=== PATIENT | female | born 2000 | race Caucasian/White ===

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

== ENCOUNTER → 2020-03-21 16:12 | Outpatient (CLI) | payer OTHER, SELFPAY ==
[2018-12-29 17:24] VITALS: BMI 23.5
[2020-03-25 20:07] LABS: Chlamydia By Nucleic Acid AMP Negative (Negative)
[2020-03-25 21:15] LABS: Gonococcus By Nucleic Acid AMP Negative (Negative)
== END ==
PROVIDERS: PCP Family Medicine; Visit Provider Obstetrics & Gynecology
DX: Z11.3 Encounter for screening for infections with a predominantly sexual mode of transmission (principal)
CPT/HCPCS: 87491; 87591

== ENCOUNTER → 2021-04-03 | Outpatient (CLI) | payer OTHER, SELFPAY ==
[2021-04-06 22:06] LABS: Chlamydia By Nucleic Acid AMP Negative (Negative)
[2021-04-07 07:57] LABS: Gonococcus By Nucleic Acid AMP Negative (Negative)
== END | disposition home or self-care (01) ==
LOC: LABSPEC 14:25
PROVIDERS: PCP Family Medicine; Visit Provider Obstetrics & Gynecology
DX: Z11.3 Encounter for screening for infections with a predominantly sexual mode of transmission (principal)
CPT/HCPCS: 87491; 87591

== ENCOUNTER 2021-06-11 05:51 | Day surgery (SDC) | payer OTHER, SELFPAY ==
[2021-06-11] VITALS (9 sets, daily range): BP systolic 115–129; BP diastolic 67–85; PULSE 80–97; RESP 14–18; TEMP 35.6–36.8; O2SAT 100; BMI 27.6
[2021-06-11 06:20] LABS: Internal QC Validated? YES +Cl - CLEAR BKGD; Pregnancy, Urine Negative Negative
[2021-06-11] MEDS: Lactated Ringers 1,000 ML 15 ML IV ×2 (06:50→10:07)
[2021-06-11 07:00] LABS: Hematocrit 41.1 % (37-47); Hemoglobin 14.1 g/dL (12.0-15.0); Mean Corp Hgb Conc 34.3 g/dL (32-36); Mean Corpuscular Volume 87.4 fL (81-99); Mean Platelet Vol. 9.7 fl (6.2-12.0); Platelet Count 208 K/mm3 (150-450); RBC Distribution Width SD 38.8 fl (35.1-43.9); White Blood Count 5.7 K/mm3 (4.4-11.0)
[2021-06-11 07:06] LABS: Prothrombin Time (Protime)PT. 12.9 SECONDS (11.7-14.9)
[2021-06-11 07:07] LABS: Partial Thromboplast Time 26.9 Seconds (24.1-36.2)
[2021-06-11 07:25] LABS: Thyroid Stim Hormone (TSH) 2.16 uIU/mL (0.358-3.74)
--- NOTE | 2021-06-11 07:30 | APP_PTH ---
PATIENT: PAXTON GUZMAN LOC: [facility] [place] U[place][id number] AGE/SX: 20/F ROOM: RE06/11/[address]: Dr. Meme Romo MD : [id number] BED: DIS: 06/11/2021 SPEC #: [id number] RECD: 06/11/21 11:28 STATUS: YVONNE REHerve #: [id number] RIMA: 06/11/21 07:[address]: Meme Navarro DEPT: SURGICAL PATHOLOGY RECD BY: Nicole Velez ENTERED: 06/11/21 12:24 SP TYPE: APPENDIX OTHR DR: No Primary Care Phys Tissues: A - TISSUE SURGICALLY REMOVED B - Appendix, NOS Procedures: Surgery Specimen Level III Surgery Specimen Level IV HEADER OPERATION: Diagnostic laparoscopy, excision of endometriosis; laparoscopic appendectomy PRE-OP DIAGNOSIS: Dysmenorrhea, dyspareunia, appendicitis, endometriosis TISSUE SUBMITTED: A ? Posterior cul-de-sac specimen, B - Appendix MICROSCOPIC DIAGNOSIS A. Posterior cul-de-sac tissue, biopsy: Fibrofatty tissue with focal benign histiocytic reaction and minimal chronic inflammation. B. Appendix, appendectomy: Early acute appendicitis. AM:mikey 06/12/2021 MICROSCOPIC DESCRIPTION Slides are reviewed. GROSS DESCRIPTION A - Received in fixative is one container labeled with the patient's name and designated posterior cul-de-sac. The specimen consists of an irregular fragment of murray-pink soft tissue measuring 0.5 x 0.5 x 0.1 cm. The specimen is totally submitted in one cassette. B - Received in fixative is one container labeled with the patient's name and designated appendix. The specimen consists of an appendix measuring 8 cm in length and 0.5 cm in average diameter. No gross perforations are evident. Serial sections reveal a patent lumen. No mass lesion is identified. Jewel Bearing Broacher sections are submitted in one cassette. / AM:mikey 06/11/21 TC:2 CPT: 67272, 51503
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
[2021-06-11] MEDS: Cefotetan 2 GM in 0.9% NS 100 ML IV (07:51)
--- NOTE | 2021-06-11 09:08 | OP.PCM_ITS ---
Report of Operation Date of Procedure: 06/11/21 Pre-Operative Diagnosis: 1. Dysmenorrhea Post-Operative Diagnosis: 1. Dysmenorrhea 2. Endometriosis 3. Appendicitis Surgery/Procedure Performed:: 1. Diagnostic laparoscopy 2. Excision of endometriosis Description of Surgical Findings:: Yellow posterior culdesac lesion Surgeon: Meme Navarro senior solutions architect: Sharda New Type of Anesthesia: General Anesthesiologist: Andreas Bird Specimen's removed: 1. posterior culdesac endometriosis Estimated Blood Loss (mL): 10 Fluids Replaced: 1000 ml Description of Procedure: Indications: 29-year-old nulligravida with a history of chronic dysmenorrhea and dyspareunia refractory to oral contraceptive pills presents for scheduled diagnostic laparoscopy to rule out endometriosis. Procedural risks, benefits, indications and alternatives were reviewed and patient agreeable to proceed. Informed consent was obtained. Procedure: The patient was brought to the operating room and spinal was performed. She is placed in the dorsal supine position and induced under general anesthesia and intubated. Her arms were tucked at her sides and she was repositioned to dorsal lithotomy. Examination under anesthesia was performed. The perineum and abdomen were prepped and draped in sterile fashion. Velasco catheter was placed to the bladder. The patient was placed into high lithotomy and bivalve speculum placed vaginally. Cervix was grasped using a single-tooth tenaculum at the anterior cervical lip. The uterus sounded to 8 cm and a ZUMI uterine manipulator was placed and secured. The speculum was removed from the vagina. Patient was placed into low lithotomy and attention turned to the abdomen. An inferior umbilical incision was made using the scalpel. Veress needle was introduced abdominally with successful hanging drop test and no aspirate. Abdominal entry pressure was low and the abdomen was insufflated to 15 mmHg. The Veress needle was removed and a 5 mm trocar was introduced under laparo scopic guidance confirming entry into the abdominal cavity. A suprapubic incision was made using the scalpel and a 5 mm port also introduced at this site. The abdomen and pelvis were inspected there appeared to be an area of endometriosis in the posterior cul-de-sac abutting the vagina and right pelvic vascular congestion as well as inflamed appendix. I proceeded with isolation resection of the peritoneum of the posterior cul-de-sac having the lesion. This was done using the laparoscopic shyann and blunt and sharp dissection. Interceed was introduced into the pelvis placed at the excisional site. I obtained intraoperative consultation from Dr. English, general surgery regarding the appearance of the appendix. She agreed that appendectomy was indicated and performed laparoscopic appendectomy that was uncomplicated. Please review her operative report for additional details bleeding abdominal closure. I subsequently proceeded to remove the Velasco catheter as well as the uterine m anipulator. The cervical tenaculum site was hemostatic. The procedure was complete. The patient will be awakened, awakened extubated and transferred to the recovery room. She is tolerated the procedure well. Sponge and needle counts correct x2. Complications None Admit VTE Documentation VTE Present on Admission: No VTE Mechan Device Prophylaxis: SCD's VTE Pharm Prophylaxis ordered?: No
--- NOTE | 2021-06-11 09:27 | PCM.DC ---
Discharge Instructions Diet Discharge Diet: No restrictions Activity Discharge Activity: Return to Normal Activity May resume sexual activity in: 4 weeks and - Lifting Restrictions: 10 lb Dressing / Incision Call your doctor if your incision/area has: Continuous Slow Oozing, Sudden Increased Bleeding, Increased Pain/ Swelling, Increased Redness, Foul Smelling Discharge and Swelling at the incision site Call your doctor if you observe: Fever of 101 or Higher, Inability to urinate, Inability to have a bowel movement, Shortness of breath, Chest pain, Calf discomfort and Uncontrolled pain Remove Dressing in: 2 days Cleanse incision/area with: Soap & Water Follow Up Care Please Follow Up With: Meme Navarro MD When: 2 weeks on , June 25. Call the office to schedule. Test Results: Test results from this visit will be discussed in further detail at your follow-up appointment, if applicable. Discharge Plan Admission Primary Reason for Your Visit: Removal of endometriosis and Removal of appendix Attending Provider: Meme Navarro Primary Care Provider: Care Physician,No Primary Instructions Patient Instructions: Endometriosis Lap Tx Dc, Appendectomy Laparoscopic Dc Discharge Orders/Prescriptions Prescriptions: New oxycodone 5 mg capsule 5 mg PO Q6H PRN (Reason: pain) 7 Days Qty: 20 RF: 0 ibuprofen 800 mg tablet 800 mg PO Q8H PRN (Reason: pain) Qty: 30 RF: 0 Continued norethindrone-e.estradiol-iron [ (28)] 1.5 mg-30 mcg (21)/75 mg (7) Tablet 1 tab PO DAILY RF: 0 Referrals / Follow Up: Care Physician,No Primary [Primary Care Provider] - Disposition Disposition (needs filled in before D/C Order can be placed): Home, Self Care
[2021-06-11] MEDS: Bupivacaine Mpf 0.5% 30 ML VIAL (09:28)
--- NOTE | 2021-06-11 09:36 | PCM.OPRPT ---
Report of Operation Date of Procedure: 06/11/21 Pre-Operative Diagnosis: mild acute appendicitis Post-Operative Diagnosis: same Surgery/Procedure Performed:: laparoscopic appendectomy Surgeon: Jazmine Kim Type of Anesthesia: General/Supplemental Anesthesiologist: Andreas Bird Special Medications: Per Dr. Meme Romo please refer to her operative note Specimen's removed: appendix Estimated Blood Loss (mL): <10 cc Fluids Replaced: per anesthesia Description of Procedure: Indications: 20-year-old female is having laparoscopic for excision of endometriosis by Dr. Meme Romo. Incidentally found mildly inflamed appendix?intraoperative consult obtained. Dr. Abigail Romo has been discussed with patient's mother about removing the appendix and I also had further discussion with patient's mom. Description of the procedure: Please see Dr. Meme Romo's operative note for the beginning of the case. The appendix was grasped with atraumatic grasper and elevated. It was noted to be mildly inflamed. A window was developed in the mesoappendix at the point between the base of the appendix and the cecum. The infraumbilical 5 mm trocar was enlarged to accommodate a 12 mm trocar. An endoscopic 45 mm linear cutting stapler blue load was then used to divide and staple the base of the appendix. Enseal was used to divide the mesoappendix. The appendix was withdrawn into the Baker trocar after being placed endoscopically retrieval bag. Appendix was sent to pathology. The appendiceal stump was then irrigated and hemostasis was assured. Secondary trochars were removed under direct visualization. No bleeding was noted trocar sites. The laparoscope withdrawn and the umbilical trocar removed. The abdomen was allowed to collapse. Local anesthesia of 0.5% Marcaine was used at the incision sites. The umbilical trocar site was closed with the [id number] 0 Vicryl suture. The skin was closed up to clear sutures of 4-0 Monocryl and Steri-Strips. The patient was extubated. The patient tolerated the procedure well and was taken to the postanesthesia care unit in satisfactory condition. Complications none
[2021-06-11] MEDS: HYDROcodone Bitartrate/Apap 5/325 Tablet PO (11:46)
== END 2021-06-11 13:02 | disposition home or self-care (01) ==
LOC: SDC 05:52 → AC 05:53
PROVIDERS: Anesthesiology; Surgery; Referring Provider Obstetrics & Gynecology; Visit Provider Obstetrics & Gynecology
PROC: (CPT 49320; principal; 2021-06-11 07:15)
PROC: 0DTJ4ZZ Resection of Appendix, Percutaneous Endoscopic Approach (ICD-10-PCS; CPT 44970; 2021-06-11 07:15)
DX: N80.9 Endometriosis, unspecified (principal); K35.80 Unspecified acute appendicitis; Z20.822 Contact with and (suspected) exposure to COVID-19; F17.200 Nicotine dependence, unspecified, uncomplicated
CPT/HCPCS: 44970; 58662; 81025; 84443; 85027; 85610; 85730; 86850; 86900; 86901; 87426; 88304; 88305; C9803; J7120; C1760; J2405

== ENCOUNTER 2021-07-10 15:48 | Outpatient (CLI) | payer OTHER, SELFPAY | END 2021-07-10 23:59 | disposition short-term general hospital (02) | PROVIDERS: Visit Provider Obstetrics & Gynecology | DX: N71.1 Chronic inflammatory disease of uterus (principal) ==

== ENCOUNTER 2022-10-31 00:02 | Emergency (ER) | payer OTHER, SELFPAY ==
[2022-10-31 00:03] VITALS: BP 141/83; PULSE 115; RESP 18; TEMP 36.9; O2SAT 99; BMI 31.4
--- NOTE | 2022-10-31 00:25 | EDS_ITS ---
HPI History of Present Illness Chief Complaint: Lower Extremity Injury [facility] Medical History (Updated 10/31/22 @ 01:[address] Benjamin Hodges, DO) Alcohol use Anxiety Dysmenorrhea Endometriosis Migraine headache Non-smoker Severe headache Home Medications norethindrone 1.5 mg-ethinyl estradiol 30 mcg(21)/iron 75 mg(7) tablet (June FE 1.5/30 (28)) 1 tab PO DAILY 06/05/21 [History Last Taken Unknown] ibuprofen 800 mg tablet 800 mg PO Q8H PRN pain #30 tabs 06/11/21 [Rx Last Taken Unknown] ondansetron 4 mg disintegrating tablet 4 mg PO Q8H PRN PRN Nausea #10 tabs 10/31/22 [Rx Last Taken Unknown] Allergy/AdvReac Type Severity Reaction Status Date / Time No Known Allergies Allergy Verified 06/11/21 06:23 Social History (Updated 12/29/18 @ 17:35 by MILLIE Appiah) Smoking Status: Never smoker EXAM Physical Exam Const Vital Signs: 10/31/22 00:03 Temperature 98.5 F Temperature Source Oral Pulse Rate 115 H Respiratory Rate 18 Blood Pressure 141/83 H Blood Pressure Mean 102 Pulse Ox 99 Oxygen Delivery Method Room Air [facility] MDM Narrative Medical decision making narrative: HISTORY OF PRESENT ILLNESS: 22-year-old female here with ankle pain. Patient states she is not drinking tonight. States she rolled her ankle. Denies any other injury or trauma. Notes pain is constant, severe, worsened with palpation. Denies history of ankle surgery. REVIEW OF SYMPTOMS: Pertinent positives: Ankle pain Pertinent negatives: Numbness tingling or loss of sensation PHYSICAL EXAM: Nursing triage notes reviewed, Vital signs reviewed Constitutional: please see mdm Extremities: No edema Neuro: Intact sensation L1-S1 dermatomal distributions. Intact 5/5 strength in hip flexion (T12-L3). Knee extension (L2-L4). Ankle dorsiflexion (L4-L5). Ankle plantar flexion (S1). Great toe extension (L5). 2+ patellar and Achilles DTRs. Skin: No rash or lesions noted MEDICAL DECISION MAKING: Chief Complaint: Ankle pain External records reviewed: No recent advanced imaging of the involved extremity MDM Narrative: I considered the following differential diagnosis: Ankle fracture, dislocation, ankle sprain I obtained an x-ray which showed no evidence of ankle fracture. Patient is appropriate discharge home with Santhosh wrap. The patient was clinically intoxicated however she had a sober ride home. Sober ride home was alert and orient x3 did not appear intoxicated and assured me that she would care for the patient. The patient's friend assured me that she would get the patient home safely. Patient was discharged in the care of her sober friend. Factors affecting care: Anxiety, alcohol use, migraine headache Social determinants of health: Alcohol abuse History obtained from others: The patient's past friend Shared decision making: I will have a discussion with the patient and or visitors regarding risk/bene fits of further testing or admission. They will be made aware of of the risk/benefits inherent in this decision they will be given the opportunity to voice understanding. Consults: None Radiography Diagnostic Testing: Clinical Impression(s) from Imaging Studies Ankle X-Ray 10/31/22 00:45 IMPRESSION: Soft tissue swelling laterally consistent with sprain. No fracture. Electronically Signed: Florentino Marion MD at 1:19 EDT , Discharge Plan Triage Chief Complaint: Lower Extremity Injury ED Provider: Benjamin Hodges Dx/Rx/DC Orders Clinical Impression: Ankle sprain Instructions: ED Sprain Ankle W X Ray Prescriptions: New ondansetron 4 mg tablet,disintegrating 4 mg PO Q8H PRN PRN (Reason: Nausea) Qty: 10 0RF No Action norethindrone-e.estradiol-iron [ 1.5/30 (28)] 1.5 mg-30 mcg (21)/75 mg (7) Tablet 1 tab PO DAILY ibuprofen 800 mg tablet 800 mg PO Q8H PRN (Reason: pain) Qty: 30 0RF Primary Care Provider: Care Physician,No Primary Referrals: Care Physician,No Primary [Primary Care Provider] - Activity Restrictions/Additional Instructions: Thank you for trusting us with your care today! Please refrain from drinking excessive amount of alcohol. Recommended amount of alcohol is 1 drink per day for females. Please take Tylenol (2 pills, 650 mg), ibuprofen (2 pills, 400 mg) every 6 hours as needed for pain and fever control. Please return to the emergency department if your symptoms change or worsen. Please follow with your primary care physician for further outpatient evaluation and management. Disposition Disposition: Home, Self Care
--- NOTE | 2022-10-31 00:45 | RAD_ITS ---
EXAM: XR RIGHT ANKLE COMPLETE, 3 OR MORE VIEWS CLINICAL INDICATION: ankle pain TECHNIQUE: Frontal, lateral and oblique views of the right ankle. COMPARISON: No relevant prior studies available. FINDINGS: BONES/JOINTS: Unremarkable. No acute fracture. No subluxation. Normal alignment. Preservation of the joint space. No sclerotic or destructive changes observed. SOFT TISSUES: Soft tissue swelling laterally consistent with sprain. No radiopaque foreign body. RAD/Ankle min 3 Views IMPRESSION: Soft tissue swelling laterally consistent with sprain. No fracture. Electronically Signed: Florentino Marion MD at 1:19 EDT ,
[2022-10-31] MEDS: Ondansetron ODT 4 MG Tablet PO (00:53)
[2022-10-31] MEDS: Ibuprofen 200 MG Tablet 400 MG PO (02:02)
[2022-10-31 02:07] VITALS: PULSE 115; RESP 15; O2SAT 97
== END 2022-10-31 02:31 | disposition home or self-care (01) ==
PROVIDERS: Emergency Provider Emergency Medicine; Visit Provider Emergency Medicine
DX: S93.401A Sprain of unspecified ligament of right ankle, initial encounter (principal); F41.9 Anxiety disorder, unspecified; F10.10 Alcohol abuse, uncomplicated; G43.909 Migraine, unspecified, not intractable, without status migrainosus; X50.9XXA Other and unspecified overexertion or strenuous movements or postures, initial encounter
CPT/HCPCS: 73610; 99283

== ENCOUNTER → 2023-03-11 | Outpatient (CLI) | payer OTHER, SELFPAY ==
[2023-03-16 15:09] LABS: HPV APTIMA, High Risk Negative (Negative)
== END | disposition home or self-care (01) ==
LOC: LABSPEC 16:00
PROVIDERS: Referring Provider Obstetrics & Gynecology; Visit Provider Obstetrics & Gynecology
DX: Z01.419 Encounter for gynecological examination (general) (routine) without abnormal findings (principal)
CPT/HCPCS: 87624; 88175; G0145

== ENCOUNTER → 2024-03-08 | Outpatient (CLI) | payer OTHER, SELFPAY ==
--- NOTE | 2024-03-08 10:59 | RAD_ITS ---
INDICATION: Chronic neck pain EXAMINATION/TECHNIQUE: X-RAY - XR Spine Cervical 4 or 5 Views COMPARISON: None. FINDINGS: VERTEBRAE: Preserved vertebral body height. No fracture. No spondylolisthesis. Preservation of the normal cervical lordosis. No significant facet arthropathy. The odontoid process and prevertebral soft tissue planes have normal appearance. DISCS: Disc spaces are maintained. Visualized neural foramina are widely patent. NECK SOFT TISSUES: No prevertebral soft tissue widening. LUNG APICES: Clear. RAD/Cerv Spine 4 or 5 Views IMPRESSION: 1. No evidence of acute fracture or spondylolisthesis. Electronically Signed: Jose Young MD at 19:09 EDT ,
== END | disposition home or self-care (01) ==
PROVIDERS: PCP Family Medicine; Referring Provider Family Medicine; Visit Provider Family Medicine
DX: M54.2 Cervicalgia (principal); G89.29 Other chronic pain
CPT/HCPCS: 72050

== ENCOUNTER 2024-06-11 16:30 | Outpatient (RCR) | payer OTHER, SELFPAY ==
--- NOTE | 2024-03-22 18:56 | HP.PTEVAL_ITS ---
Patient's Visit Information Visit Information Visit Information: PAXTON GUZMAN is a 23 year old F referred to Physical Therapy by Madalyn Proctor MD with a diagnosis of CERVICAL PAIN. Date of Evaluation: 03/22/24 Physical Therapist: Rc Cm PT, Cert MDT, OCS Visit Plan Frequency: 2x /Week Duration: 4 Weeks Plan: PT INSERTIONS MANUAL THERAPY STM/OA/AA/OCCIPITAL MOBS FOR CARRILLO ,CLAYTON EX' S ,POSTURAL EX'S STRENGTHENING AND MODLATIES Subjective Subjective: This 23 y/o female presents to physical therapy with cervical pain. Patient has had pain entire life with symptoms progressively worse . Patient seen DR recommended PT ,did x-rays -. Patient tried PT has not helped. Massage PT did help . Muscle relaxers stopped . Pain located cervical radiates to temporal . Patient has constant CARRILLO. No trauma . Denies paresthesia/tingling -. Aggravating sitting flexion ,,job demands . Alleviating factors extension ,working out helped. Dizziness/nausea/tinnitus. CARRILLO get worse with neck pain . Pain affects sleeping 2-3 hrs /night. Patient condition affects QOL and function/job demands. Goals to decrease pain. SOCIAL; single VOCATION: retired Pain Bilateral Neck: Pain Intensity (Out of 10): 7 Pain Intensity Range: 10 Comment: worse 9/10 Objective Objective: POSTURE: mild forward posture mild kyphosis PALPATION: tender UT/levator /scalenes/Occipital NEURO: denies paresthesia/tingling ,reflexes C5-6-7 2/3 BUE AROM: WNL CERVICAL ROM: flexion min los pain ,extension min loss ,,rotation min loss ,lateral flexion mod loss pain UPPER CERVICAL ROM: mod loss worse on right with pain MMT: 4/5 grossly Special Tests C/S Radiculapathy - Left Upper limb tension test: Negative C/S Radiculapathy - Right Upper limb tension test: Negative C/S Radiculapathy - Left Spurlings: Positive C/S Radiculapathy - Right Spurlings: Positive C/S Radiculapathy - Left Cervical distraction: Negative C/S Radiculapathy - Right Cervical distraction: Positive C/S Radiculapathy - Left Relief test: Positive C/S Radiculapathy - Right Relief test: Negative C/S Radiculapathy - Valsalva: Negative Sharp Monica: Negative Vertebral Artery Test: Negative Alar Ligament Test: Negative Cervical Sitting: Protrusion - Mechanical Response: No effect Cervical Sitting: Protrusion - Symptoms During Testing: Increases Cervical Sitting: Protrusion - Symptoms After Testing: No worse Cervical Sitting: Retraction - Mechanical Response: No effect Cervical Sitting: Retraction - Symptoms During Testing: Decreases Cervical Sitting: Retraction - Symptoms After Testing: No better Cervical Sitting: Retraction-Extension - Mechanical Response: No effect Cerv Sitting: Retraction-Extension - Symptoms During Testing: Increases Cerv Sitting: Retraction-Extension - Symptoms After Testing: Worse Cervical Sitting: Sidebend Right - Mechanical Response: No effect Cervical Sitting: Sidebend Right - Symptoms During Testing: Increases Cervical Sitting: Sidebend Right - Symptoms After Testing: No worse Cervical Sitting: Sidebend Left - Mechanical Response: No effect Cervical Sitting: Sidebend Left - Symptoms During Testing: Increases Cervical Sitting: Sidebend Left - Symptoms After Testing: No worse Cervical Sitting: Rotation Right - Mechanical Response: No effect Cervical Sitting: Rotation Right - Symptoms During Testing: Increases Cervical Sitting: Rotation Right - Symptoms After Testing: No worse Cervical Sitting: Rotation Left - Mechanical Response: No effect Cervical Sitting: Rotation Left - Symptoms During Testing: Increases Cervical Sitting: Rotation Left - Symptoms After Testing: No worse Cervical Sitting: Flexion - Mechanical Response: No effect Cervical Sitting: Flexion - Symptoms During Testing: Increases Cervical Sitting: Flexion - Symptoms After Testing: Worse Balance/Special Test Scores Oswestry Neck Score: 21 Goals Goal 1:: Patient to be I with HEP for cervical pain Goal Time Frame: 4-6 Weeks Goal 2:: Patient to improve neck oswestry score by 5 point to improve function and QOL Goal Time Frame: 4-6 Weeks Goal 3:: Patient to decrease CARRILLO and cervical pain 50% > to improve QOL Goal Time Frame: 4-6 Weeks Goal 4:: Patient to improve cervical ROM for function pof recovery with less pain for for job demands. Goal Time Frame: 4-6 Weeks Goal 5:: Patient to improve neck oswestry score by 5 points to improve QOL Goal Time Frame: 4-6 Weeks Rehabilitation Potential Physical Therapy Diagnosis: This patient appears to have upper cervical spine derangement with pain with positioning and motion testing ,flexion and sitting worse some better with with retraction but if CARRILLO worse causes increase pain thus benefit from skilled PT Rehabilitation Potential: Good Anticipated Interventions Patient/Client Instruction: Educate patient on: Condition and Plan of Care For the Purpose of:: To decrease pain, To increase ROM, To improve muscle performance and motor function, To improve ability to perform ADL's, To increase tolerance to activity/condition/position, To improve ability of physical actions for home/community/work/leisure, To improve health of tissue, To decrease soft tissue restriction, To increase flexibility/ROM and To improve tolerance to ADL's Therapeutic Exercise to Include: Strength training, Postural training, Flexibilty training and Clayton Exercises For the Purpose of:: To decrease pain, To increase ROM, To improve ability to perform ADL's, To increase tolerance to activity/condition/position, To decrease level of supervision to perform tasks, To improve health of tissue, To decrease soft tissue restriction and To increase flexibility/ROM Manual Therapy Techniques to Include: Mobilization and Soft tissue mobilization Comment: OA/AA/OCCIPIATL For the Purpose of:: To decrease pain, To increase ROM, To improve nutrient delivery to tissue, To increase oxygenation perfusion, To improve health of tissue and To decrease soft tissue restriction TENS: Yes IF ES: Yes Cryotherapy (ice pack, ice massage): Yes Thermo therapy (hot pack): Yes Ultrasound (thermal/non thermal): Yes For the Purpose of:: To decrease pain, To increase ROM, To improve health of tissue and To decrease soft tissue restriction Text: Thank you for the opportunity to evaluate your patient. For Medicare and Medicare HMO plans, please review the plan of care and approve it. It will need to be FAXED BACK to us at [phone] for Medicare purposes. For Medicare only, by signing this I certify the plan of care. Please let me know if there are questions or concerns regarding this plan of care. Physician Signature: Date:
--- NOTE | 2024-06-11 17:28 | HP.PTDCSUM ---
Discharge Summary D/C summary: It has been my pleasure to treat PAXTON GUZMAN referred by Madalyn Proctor MD, with the diagnosis of CERVICAL PAIN for a total of 17 visit(s). Discharge Date: 06/11/24 Please see the following information for a summary of their discharge status. Subjective Subjective: CARRILLO have gotten better . Pain is same PT helps temporarily Pain Bilateral Neck: Pain Intensity (Out of 10): 3 Overall Improvement % Improvement: 50 Objective Objective/Function: POSTURE: mild forward posture mild kyphosis PALPATION: tender UT/levator /scalenes/Occipital NEURO: denies paresthesia/tingling ,reflexes C5-6-7 2/3 BUE AROM: WNL CERVICAL ROM: flexion min los pain ,extension min loss ,,rotation WFL ,lateral flexion MIN loss pain UPPER CERVICAL ROM: mod loss worse on right with pain MMT: 4/5 grossly Goals Goal 1:: Patient to be I with HEP for cervical pain Goal Progress: Goal Met Goal 2:: Patient to improve neck oswestry score by 5 point to improve function and QOL Goal Progress: Goal Met Goal 3:: Patient to decrease CARRILLO and cervical pain 50% > to improve QOL Goal Progress: Goal Met Goal 4:: Patient to improve cervical ROM for function pof recovery with less pain for for job demands. Goal Progress: Progressing Goal 5:: Patient to improve neck oswestry score by 5 points to improve QOL Goal Progress: Goal Met Plan Plan: RTD D/C Information d/c sentence: If there are questions or concerns regarding this patient's physical therapy, please feel free to call me at [phone]. Thank you for the referral of this patient. Sincerely, Rc Cm, PT, Cert MDT, OCS Balance/Gait/Functional tests Balance/Special Test Scores Oswestry Neck Score: 16 Improvement % Improvement: 50
== END 2024-06-11 19:00 | disposition home or self-care (01) ==
LOC: PT 16:30
PROVIDERS: PCP Family Medicine; Referring Provider Family Medicine; Visit Provider Family Medicine
DX: M54.2 Cervicalgia (principal)
CPT/HCPCS: 97110; 97140; 97161; 97530

== ENCOUNTER → 2024-09-01 | Outpatient (CLI) | payer OTHER, SELFPAY ==
--- NOTE | 2024-09-01 08:47 | MRI_ITS ---
PROCEDURE: MRI SPINE CERVICAL (ROUTINE) REASON FOR EXAM: Neck pain. Radiculopathy. TECHNIQUE: Noncontrast cervical spine MRI. COMPARISON: Cervical spine radiograph from 03/08/2024. FINDINGS: Cervical vertebral bodies maintain a normal height and alignment. There is diminished signal intensity involving the discs of the cervical spine relating to mild disc desiccation. No acute fracture or subluxation is identified. Cervical spinal cord demonstrates a normal signal intensity. Cerebellar tonsils are within normal range. Paraspinous musculature is unremarkable. Individual levels: C2-3: Mild disc osteophyte complex with no significant central canal stenosis or neural foraminal narrowing. C3-4: Mild disc osteophyte complex with no significant central canal stenosis or neural foraminal narrowing. C4-5: Mild disc osteophyte complex with no significant central canal stenosis or neural foraminal narrowing. C5-6: Central disc extrusion measuring 7.4 x 4.6 mm in the transverse and AP dimensions respectively with mild superior migration by approximately 3 mm results in mass effect on the ventral spinal cord with moderate to severe central canal stenosis. No significant neural foraminal narrowing. C6-7: Disc osteophyte complex results in mild flattening of the ventral thecal sac with mild central canal stenosis. No significant neural foraminal narrowing. C7-T1: No disc herniation, central canal stenosis, or neural foraminal narrowing. MRI/Spine Cervical (Routine) IMPRESSION: 1. At C5-C6, central disc extrusion with mild superior migration results in mas s effect on the ventral spinal cord with moderate to severe central canal stenosis. 2. At C6-C7, disc osteophyte complex results in mild central canal stenosis. 3. Multilevel mild disc osteophyte complexes with no significant neural foramin al narrowing. 4. No abnormal cord signal. Reading Location: [facility]
== END | disposition home or self-care (01) ==
LOC: MRI 08:29
PROVIDERS: PCP Family Medicine; Referring Provider Family Medicine; Visit Provider Family Medicine
DX: M54.2 Cervicalgia (principal)
CPT/HCPCS: 72141

== ENCOUNTER → 2024-12-24 | Outpatient (CLI) | payer OTHER, SELFPAY ==
[2024-12-27 06:08] LABS: Chlamydia By Nucleic Acid AMP Negative (Negative); Gonococcus By Nucleic Acid AMP Negative (Negative)
== END | disposition home or self-care (01) ==
LOC: LABSPEC 14:29
PROVIDERS: PCP Family Medicine; Referring Provider Nurse Practitioner Family; Visit Provider Nurse Practitioner Family
DX: Z20.2 Contact with and (suspected) exposure to infections with a predominantly sexual mode of transmission (principal)
CPT/HCPCS: 87491; 87591

== ENCOUNTER → 2024-12-26 | Outpatient (CLI) | payer OTHER, SELFPAY ==
--- NOTE | 2024-12-26 15:07 | US_ITS ---
PROCEDURE: PELVIC W/ TRANSVAGINAL 12/26/2024 REASON FOR EXAM: ABNORMAL UTERINE BLEEDING TECHNIQUE: PELVIC W/ TRANSVAGINAL COMPARISON: None. FINDINGS: Measurements: Uterus: 5.9 x 2.8 x 6.4 cm for volume of 56.3 mL Endometrial Thickness: 2 mm Right Ovary: 2.5 x 1.0 x 1.4 cm Left Ovary: 2.6 x 1.1 x 1.1 cm Uterus: Anteverted. Normal contour and myometrial echotexture. Endometrium: Normal echotexture. Right ovary: Normal size and echotexture. Left ovary: Normal size and echotexture. Cul-de-sac: Trace free intraperitoneal fluid is likely physiologic. DOPPLER: Color Doppler: Normal color flow doppler signal at both ovaries. Spectral Doppler: Normal arterial inflow and venous outflow signal at both ovaries. US/Pelvic w/ Transvaginal IMPRESSION: NORMAL TRANSABDOMINAL AND TRANSVAGINAL PELVIC ULTRASOUND WITH DOPPLER. Reading Location: [id number]
--- NOTE | 2024-12-26 15:07 | US_ITS ---
PROCEDURE: PELVIC W/ TRANSVAGINAL 12/26/2024 REASON FOR EXAM: ABNORMAL UTERINE BLEEDING TECHNIQUE: PELVIC W/ TRANSVAGINAL COMPARISON: None. FINDINGS: Measurements: Uterus: 5.9 x 2.8 x 6.4 cm for volume of 56.3 mL Endometrial Thickness: 2 mm Right Ovary: 2.5 x 1.0 x 1.4 cm Left Ovary: 2.6 x 1.1 x 1.1 cm Uterus: Anteverted. Normal contour and myometrial echotexture. Endometrium: Normal echotexture. Right ovary: Normal size and echotexture. Left ovary: Normal size and echotexture. Cul-de-sac: Trace free intraperitoneal fluid is likely physiologic. DOPPLER: Color Doppler: Normal color flow doppler signal at both ovaries. Spectral Doppler: Normal arterial inflow and venous outflow signal at both ovaries. US/Pelvic w/ Transvaginal IMPRESSION: NORMAL TRANSABDOMINAL AND TRANSVAGINAL PELVIC ULTRASOUND WITH DOPPLER. Reading Location: [id number]
== END | disposition home or self-care (01) ==
LOC: OPUS 15:03 → US 15:08
PROVIDERS: PCP Family Medicine; Referring Provider Nurse Practitioner Family; Visit Provider Nurse Practitioner Family
DX: N80.9 Endometriosis, unspecified (principal); N93.9 Abnormal uterine and vaginal bleeding, unspecified
CPT/HCPCS: 76830; 76856

== ENCOUNTER 2025-03-27 05:23 | Day surgery (SDC) | payer OTHER, SELFPAY ==
--- NOTE | 2025-03-15 07:29 | EKG12_ITS ---
Test Reason : PREOP Blood Pressure : */* mmHG Vent. Rate : 82 BPM Atrial Rate : 82 BPM P-R Int : 112 ms QRS Dur : 86 ms QT Int : 376 ms P-R-T Axes : 21 68 27 degrees QTcB Int : 439 ms Normal sinus rhythm Normal ECG Confirmed by WILLY MARAVILLA MD ([id number]), copy editor YAJAIRA GILLIS ([id number]) on 03/15/2025 2:17:58 PM Also confirmed by WILLY MARAVILLA MD ([id number]), copy editor YAJAIRA GILLIS ([id number]) on 03/15/2025 2:21:48 PM Referred By: Fab Horne Confirmed By: WILLY MARAVILLA MD
[2025-03-15 08:08] LABS: Hematocrit 41.3 % (37-47); Hemoglobin 14.0 g/dL (12.0-15.0); Immature Granulocytes Count 0.000 X10^3/uL (0.0-0.0); Mean Corp Hgb Conc 33.9 g/dL (32-36); Mean Corpuscular Volume 88.4 fL (81-99); Mean Platelet Vol. 9.6 fl (6.2-12.0); NRBC Flagged by Analyzer 0 % (0-5); Platelet Count 218 K/mm3 (150-450); RBC Distribution Width CV 11.9 % (11.6-14.6); RBC Distribution Width SD 38.5 fl (35.1-43.9); Red Blood Count 4.67 M/mm3 (4.2-5.4); White Blood Count 6.4 K/mm3 (4.4-11.0)
[2025-03-15 09:22] LABS: Anion Gap 12 (5-15); BUN 12 mg/dL (4-19); BUN/Creat Ratio 12.3 RATIO (10-20); Calcium,Total 8.9 mg/dL (7.6-11.0); Carbon Dioxide 22.1 mmol/L (21.0-32.0); Chloride 104 mmol/L (98-108); Glucose 88 mg/dL (70-99); HIV Nonreactive (Nonreactive); Hepatitis C Antibody Nonreactive (Nonreactive); Magnesium 2.3 mg/dL (1.5-2.2); Potassium 4.2 mmol/L (3.3-5.1)
[2025-03-27] VITALS (13 sets, daily range): BP systolic 113–127; BP diastolic 76–94; PULSE 83–95; RESP 16–20; TEMP 36.1–36.9; O2SAT 96–100; BMI 30.7
[2025-03-27 05:52] LABS: Internal QC Validated? YES +Cl - CLEAR BKGD; Pregnancy, Urine Negative Negative; Record Kit Lot#,Urine Preg 0000964736
[2025-03-27] MEDS: Lactated Ringers 1,000 ML 15 ML IV (06:22)
[2025-03-27] MEDS: Magnesium 1 GM over 15 mins IV (06:23)
--- NOTE | 2025-03-27 06:25 | PRE.ANES_ITS ---
ASA Classification* ASA Classification ASA Classification: 2 Assessment & Plan Anesthesia* Anesthesia Assessment Anesthesia Assessment: Discussed sedation and/or anesthesia options, risks, benefits, and alternatives with patient/parents/legal guardian/POA. Questions invited. The patient/parents/legal guardian/POA seems to understand and agrees to proceed with anesthesia plan. Reviewed the physical assessment, medical history, allergy history and patient home medications list prior to surgery/procedure/anesthetic and documented any changes. Performed airway and anesthesia risk assessments. Anesthesia Type Anesthesia Type: General History Source History Obtained from:: Patient and Chart Anesthesia Focused Assessment* Temperature: 98.4 F Pulse Rate: 88 Blood Pressure: 120/88 Respiratory Rate: 18 Pulse Ox: 99 Oxygen Delivery Method: Room Air Airway Assessment Mouth opens: >3 cm Mallampati Score: II Teeth Condition: Intact Labs Anesthesia Preop lab: CBC WBC, (4.4-11.0) 6.4 K/mm3 03/15/25, 07:28 RBC, (4.2-5.4) 4.67 M/mm3 03/15/25, 07:28 Hgb, (12.0-15.0) 14.0 g/dL 03/15/25, 07:28 Hct, (37-47) 41.3 % 03/15/25, 07:28 Plt Count, (150-450) 218 K/mm3 03/15/25, 07:28 CHEMISTRY Potassium, (3.3-5.1) 4.2 mmol/L 03/15/25, 07:28 Sodium, (133-145) 138 mmol/L 03/15/25, 07:28 Magnesium, (1.5-2.2) 2.3 mg/dL H 03/15/25, 07:28 BUN, (4-19) 12 mg/dL 03/15/25, 07:28 Creatinine, (0.70-1.20) 1.01 mg/dL 03/15/25, 07:28 Glucose, (70-99) 88 mg/dL 03/15/25, 07:28 POC Glucose, (74-106) 86 mg/dL Today, 06:13 TSH, (0.358-3.74) 2.16 uIU/mL 06/11/21, 06:40 COAG PT, (11.7-14.9) 12.9 SECONDS 06/11/21, 06:40 Urine Test Negative Negative Today, 05:30 Tst Clinic Negative 12/24/24, 09:35 Pre-Assessment Diagnosis/Proposed Procedure Planned Operative Procedure(s): Cervical Disc Arthroplasty C5-6 Anesthesia History 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 When Was Last Pacemaker Check QUESTION #4 FULL TEXT: You/Your Family Experience fever (hyperthermia) with Anesthesia Last Oral Intake Last Oral intake: Last Oral Intake NPO since 03:00 03/27/25 06:00 Meds taken in AM with sips of No 03/27/25 06:00 water? 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 Female Yes 03/11/25 09:03 HX of Motion Sickness No 03/11/25 09:03 HX of N/V After Surgery No 03/11/25 09:03 Non-Smoker Yes 03/11/25 09:03 Duration of Surgery greater No 03/11/25 09:03 than 60 minutes Number of Risk Factors 2 03/11/25 09:03 PONV Score Moderate Risk 03/11/25 09:03 Height & Weight Height & Weight: Anesthesia: Height & Weight Height 5 ft 7 in 03/27/25 06:00 Weight: 89 kg 03/27/25 06:00 Body Mass Index (BMI) 30.7 03/27/25 06:00 Respiratory Assessment Respiratory Assessment - box covering machine operator: Respiratory Tract Infection Hx - box covering machine operator Hx Respiratory Tract Infection No 03/11/25 09:03 STOP Sleep Apnea STOP Sleep Apnea - box covering machine operator: STOP Sleep Apnea - box covering machine operator Hx Hypertension No 03/11/25 09:03 Hx Sleep Apnea No 03/11/25 09:03 CPAP BIPAP Do you snore loudly (louder No 03/11/25 09:03 than talking or can be heard Do you often feel tired/ No 03/11/25 09:03 fatigued/ sleepy during daytime? Has anyone observed you stop No 03/11/25 09:03 breathing during sleep? STOP Results Negative 03/11/25 09:03 QUESTION #5 FULL TEXT : Do you snore loudly (louder than talking or can be heard through closed doors)? 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 Specify any problems Hx of Preganancy in last 3 No 03/11/25 09:03 Months Nurse Filling Out Transfusion [facility] 03/11/25 09:03 & Questions: Date: 03/11/25 03/11/25 09:03 Time: 09:03/11/25 09:03 Patient unable to answer at this time (ie. 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: /Reproductive Hx- box covering machine operator Hx Now No 03/11/25 09:03 Gestational Age (in weeks): EDC: Hx Hx Para Hx Section SAB No 03/11/25 09:03 Active Medications Active Medications: Current Medications Generic Name Dose Route Start Last Admin Trade Name Freq PRN Reason Stop Dose Admin Acetaminophen 1,000 mg 03/27/25 07:30 Acetaminophen 500 Mg Tablet PO 03/27/25 07:31 PREOP ONE Dexamethasone Sodium Phosphate 8 mg 03/27/25 07:30 Dexamethasone 10 Mg/Ml Vial IV 03/27/25 07:31 INTRAOP ONE Dexamethasone Sodium Phosphate 4 mg 03/27/25 12:00 Dexamethasone 4 Mg/Ml Vial IV 03/27/25 12:01 POSTOP ONE Cefazolin Sodium 2 gm/ Sodium 110 mls @ 150 mls/hr 03/27/25 07:30 Chloride IV 03/27/25 08:13 INTRAOP ONE Tranexamic Acid 1,000 mg/ 110 mls @ 440 mls/hr 03/27/25 07:30 Sodium Chloride IV 03/27/25 07:44 INTRAOP ONE Tranexamic Acid 1,000 mg/ 110 mls @ 440 mls/hr 03/27/25 08:30 Sodium Chloride IV 03/27/25 08:44 INTRAOP ONE Magnesium Sulfate 1 gm/ 102 mls @ 408 mls/hr 03/27/25 07:30 Dextrose IV 03/27/25 07:44 PREOP ONE Lactated Ringer's 1,000 mls @ 15 mls/hr 03/27/25 06:00 IV .Q48H GIUSEPPE Insulin Human Lispro 1 - 6 unit 03/27/25 07:30 Insulin Lispro 100 Unit/Ml Insuln.Pen SC 03/27/25 13:30 Q4H PRN PRN BG>/= 180, SEE PROTOCOL Protocol PFSH Medical History Depression Laparoscopic surgical procedure converted to open procedure Endometriosis Dysmenorrhea Anxiety Alcohol use Migraine headache Non-smoker Severe headache Home Medications ?Medication ?Instructions ?Recorded ?Last Taken ?Type drospirenone 3 mg-ethinyl 1 tab PO QDAY #84 tabs 12/2403/26/25 Rx estradiol 0.03 mg tablet (Nanda (28)) sumatriptan succinate 25 mg tablet 25 mg PO BID PRN mi graine 03/11/25 03/21/25 History Allergy/AdvReac Type Severity Reaction Status Date / Time No Known Allergies Allergy Verified 03/27/25 05:56 Family History Mother No problems noted. Father No problems noted. Grandfather Hypertension Diabetes Heart disease Heart stents Grandmother Cancer Surgical History History of laparoscopic appendectomy History of laparoscopy Social History adopted: No household members: significant other housing: apartment number of children: 0 current occupational status: employed current occupation: [employer] pets and animals: Yes pets and animals: cat(s) and dog(s) history of recent travel: Yes ([place]) out of state: Yes out of country: No sexually active: Yes Smoking Status: Current some day smoker tobacco type: cigarettes second hand exposure: No alcohol intake: current substance use type: does not use well-balanced diet: daily or most days caffeine: No eating out: 1-3 times/week during the past year weight has: remained stable joe/yarsanism: None seatbelt use: always do you feel safe at home: Yes additional social history: S/O [employer] x 8 yrs Addt'l Information Additional Findings: >4 Mets Review of Systems (Anesthesia) ROS Narrative System reviewed and no additional complaints, except as documented. Physical Exam Const alert and oriented x3 Resp normal respiratory effort and normal air movement Auscultation: clear to auscultation bilaterally Cardio regular rate and regular rhythm Back/Spine normal ROM Neuro oriented x3 and moves all extremities
--- NOTE | 2025-03-27 06:30 | RAD_ITS ---
PROCEDURE: CERV SPINE 2 OR 3 VIEWS 03/27/2025 REASON FOR EXAM: CERVICAL DISC ARTHROPLASTY C5-6 TECHNIQUE: Procedure Code: RADSPCL Modality: DX Procedure: CERV SPINE 2 OR 3 VIEWS COMPARISON: Cervical spine, 09/06/2024. FINDINGS: 6 lateral images of the cervical spine were obtained intraoperatively for placement of an intervertebral disc prosthesis at C5-6. Fluoro time: 18.1 seconds. Cumulative dose: 2.93 mGy. RAD/Cerv Spine 2 or 3 Views IMPRESSION: As per findings. Reading Location: [place] [id number]
--- NOTE | 2025-03-27 07:15 | HP.PCM_ITS ---
History and Physical MR#: [id number] Acct: [id number] Name: PAXTON GUZMAN Rep #: [id number] : 2000 Provider: Dr. Fab Horne MD Age/Sex: 24/F [place] [facility] [email or web address] Status: Signed Intake Vital Signs 09/20/2514:33 01/25/2509:00 03/15/2508:54 Height 5 ft 7 in 5 ft 7 in 5 ft 7 in Weight: 192 lb BMI 30.0 Intake Visit Reasons: Cervical fracture Chief Complaint: Crevical fracture pre op Accompanied by: Self Is patient in pain?: No Allergies No Known Allergies Allergy (Verified 03/15/25 09:25) Medications ?Medication ?Instructions ?Recorded ?Confirmed ?Type drospirenone 3 mg-ethinyl 1 tab PO QDAY #84 tabs 12/24/24 03/15/25 Rx estradiol 0.03 mg tablet (Nanda (28)) sumatriptan succinate 25 mg tablet 25 mg PO BID PRN migraine 03/11/2503/15 History Have you fallen in the past year?: No PFSH Medical History Depression Laparoscopic surgical procedure converted to open procedure Endometriosis Dysmenorrhea Anxiety Alcohol use Migraine headache Non-smoker Severe headache Surgical History History of laparoscopic appendectomy History of laparoscopy Family History Mother No problems noted. Father No problems noted. Grandfather Hypertension Diabetes Heart disease Heart stents Grandmother Cancer Social History adopted: No household members: significant other housing: apartment number of children: 0 current occupational status: employed current occupation: [employer] pets and animals: Yes pets and animals: cat(s) and dog(s) history of recent travel: Yes ([place]) out of state: Yes out of country: No sexually active: Yes Smoking Status: Former smoker second hand exposure: No alcohol intake: current substance use type: does not use well-balanced diet: daily or most days caffeine: No eating out: 1-3 times/week during the past year weight has: remained stable joe/yazidism: None seatbelt use: always do you feel safe at home: Yes additional social history: S/O Juancarlos x 8 yrs HPI Cervical Spine Injury/Conditio The patient is a 24-year-old female presenting with cervical radiculopathy and cervical disc herniation. The patient reports experiencing numbness in her fingers, primarily in the right hand, excluding the pinky finger. This numbness occurs intermittently, approximately once every two weeks, and is accompanied by severe neck pain and migraines. The symptoms have remained stable since the last visit in the spring, with no significant changes or worsening reported. The patient denies any balance issues, falls, or new medical diagnoses since the last visit. She has no history of heart or lung problems, diabetes, or use of blood thinners. The patient is scheduled for a cervical disc replacement surgery on March 27. The procedure involves a 1-inch incision near the left side of the Niall's apple, removal of the disc, and placement of a prosthesis to maintain mobility and reduce future complications. Postoperative care includes wearing a collar, engaging in walking, and avoiding heavy lifting for the first three months. - Neurological: Reports intermittent numbness in the right hand fingers, excluding the pinky, and severe neck pain with migraines. Denies balance issues or falls. - Cardiovascular: Denies heart problems or use of blood thinners. - Respiratory: Denies lung problems. Attestation: Documentation on this patient encounter was supported using ambient scribe technology/ voice AI technology. The patient consented to recording for the purpose of documenting the encounter. Provider reviewed content of the generated note prior to signature. 09/21/24: PAXTON GUZMAN is a 24 year old F here today for cervical spine pain. patient saw Gisselle last appointment for this.This has been going on for 9 years. She woke up with the pain. It has been gradually been getting worse. The pain is more in the back of the neck. The pain is like an ache, hurts when moving, and she can feel it shoot up in her head. She has been getting really bad migraines. The migraines are so bad that she has to be in the dark, and she feels dizzy from it. She went to a massage therapist when she was 14 years old, and that helped her a lot. Denies any neck surgeries or injections. Patient went to pt in February 2024 through May. She was experiencing more pain with the pt. Patient's balance is good. She has noticed that her right hand and fingers get tingling. She has been having issues writing. She has noticed that she will get wrist pain in the right wrist and sometimes her fingers will starting going numb. 09/06/24: PAXTON GUZMAN is a 24 year old F here today for cervical spine pain. Patient has been having this pain ever since she was little. It has gradually gotten worse over time. The pain is mainly at the top behind the neck. Some times she will get low back pain. Says that the pain significantly worsened in February. Patient gotten xrays in February. She went to 16 visits for physical therapy between February-May. Sometimes it bugs her at night. Patient went to chiropractor and it didn't help. Says that she does have a right sided wrist pain but denies any finger or hand involvement. Fell down her stairs in February but says that this didn't increase her pain. She denied any balance or dexterity issues. She will take over the counter ibuprofen and tylenol as needed with no significant benefit. No diabetes, no heart or lung issues, no blood thinners. Ortho Exam General General: Yes no acute distress Neurologic: Yes alert and Yes oriented x3 Psychologic: Yes reasonable and appropriate Spine SPINE TESTING CERVICAL THORACIC LUMBAR Musculoskeletal Strength 0=absent - 5=normal Details: Neurological exam of the upper extremities shows 5X5 power. Normal sensation across all dermatomes. No hyperreflexia. No midline or paraspinal tenderness. Rafael's negative. Romberg's negative. Single leg stand showed good balance. Coding Level of Care Code Off vis,est,level 4 Diagnoses Cervical disc herniation M50.20 Cervical myelopathy with cervical radiculopathy G95.9; M54.12 Time Spent (min) 35 Assessment and Plan Assessment and Plan (1) Cervical disc herniation: Status: Acute (2) Cervical myelopathy with cervical radiculopathy: Status: Acute Plan Again reviewed imaging with the patient. X-rays show maintained disc height, no acute fractures, no instability on flexion/extension. MRI from September 01, 2024 shows a C5-6 large disc extrusion with moderate to severe central canal stenosis and C6-7 mild central canal stenosis. 1. Cervical radiculopathy - The patient will undergo cervical disc replacement surgery to alleviate symptoms and prevent future complications. - Postoperative care includes wearing a collar, engaging in walking, and avoiding heavy lifting for the first three months. 2. Cervical disc herniation - The surgical plan involves removing the herniated disc and placing a prosthesis to maintain mobility and reduce the risk of adjacent segment disease. 3. Migraine - No specific treatment plan discussed during this visit. - Wear the collar as instructed after surgery and gradually reduce its use as advised. - Engage in regular walking and avoid heavy lifting for the first three months post-surgery. - Maintain an upright position to help reduce swelling and facilitate recovery. - Follow up with outpatient physical therapy to regain range of motion. - Contact the pre-admission testing nurse for any questions regarding pre-marc charles preparations, such as nail bahraini or eyelash extensions. Explained imaging findings in detail. Patient has a large central disc extrusion causing indentation and spinal cord without any spinal cord signal changes. Discussed myelopathy and radiculopathy arising from this. Discussed treatment options which include continued nonoperative treat measures versus surgery. Patient has had the symptoms for more than 6 months and they are affecting her quality of life and ability to do things. Her right hand dexterity is worsening with time. She wishes to proceed with surgical intervention. I spoke with patient that for surgery we would do a disc replacement as the risk of the discs above or below are less likely to become a problem vs having a fusion. I explained surgical procedure with patient today. Patient declines injections. Discussed C5-6 disc replacement surgery in detail. Discussed this procedure in detail and explained the risks, benefits and alternatives. The risks of surgery include but are not limited to infection, bleeding, injury to nerves and vessels, dysphagia, dysphonia, hematoma formation, need for further surgery, Riley syndrome, recurrent laryngeal nerve injury, persistent pain, persistent numbness and weakness, DVT, pulmonary embolism, pneumonia, atelectasis, prosthesis malposition, hypermobility, adjacent segment degeneration, spinal cord injury, nerve root injury, cardiopulmonary event. Answered all questions to the patient?s satisfaction. Patient understands and agrees to proceed with surgery. Consent was signed.Follow up 2 weeks post operatively or sooner if pain, swelling, numbness or associated symptoms, or concerns develop. All questions answered. Patient in agreement of plan.
[2025-03-27] MEDS: Midazolam 2 MG/2 ML Syringe IV (07:29)
[2025-03-27] MEDS: Lidocaine 1% (5 ml sdv) 5 ML Vial IV (07:35)
[2025-03-27] MEDS: Cefazolin 1 GM/5 ML Vial 2 GM IV (07:40)
[2025-03-27] MEDS: fentaNYL 100 MCG/2 ML Ampul 200 MCG IV (08:04)
[2025-03-27] MEDS: Lactated Ringers 2,000 ML 2000 ML IV (08:33)
[2025-03-27] MEDS: TRANEXAMIC ACID 1,000 MG/10 ML ML 2000 MG IV (08:58)
--- NOTE | 2025-03-27 09:29 | OP.PCM_ITS ---
Procedures Musculoskeletal [id number]-29xxx: Other Procedure See Report Operative Report (Standard) Operative Information Date of Procedure: 03/27/25 Pre-Operative Diagnosis: C5-6 disc herniation, myelopathy Post-Operative Diagnosis: Same Surgery/Procedure Performed: C5-6 anterior cervical disc replacement financial operations consultant: Yes Pin Drafter: Gisselle Green Tasks completed by first assistant manager: Closing, Removing tissue, Hemostasis: Electrocautery and Retracting Type of Anesthesia: General RN Documented Start/Stop Times: Operation Date: 03/27/25 07:30 Case Time Into Pre-Op 03/27/25 05:46 Out of Pre-Op 03/27/25 07:24 Anesthesia Start 03/27/25 07:29 Into Room 03/27/25 07:29 Procedure Start 03/27/25 08:04 Procedure End 03/27/25 09:16 Anesthesia End 03/27/25 09:27 Out of Room 03/27/25 09:27 Procedure Start Time: 08:04 Procedure Stop Time: 09:16 Select all DRAINS/GRAFTS/IMPLANTS that apply: Prosthetic device Prosthetic device details: ZimVie Mobi-C cervical disc replacement prosthesis Estimated Blood Loss: 20 cc Specimen collected: No Description of surgery: Preoperative diagnosis: C5-6 central disc herniation with stenosis, with myelopathy Postoperative diagnosis: Same Name of procedure: C5-6 anterior cervical disc replacement - Cervical disc replacement C5-6, CPT code 31054 Attending surgeon: Fab Horne M.D. Anesthesia: Gen. endotracheal Estimated blood loss: 20 mL Complications: None Instrumentation used: [employer]y [employer] Mobi-C cervical disc replacement implants Indications: The patient is a pleasant 24-year-old lady who presented with symptoms of neck pain, progressive worsening hand numbness and dexterity issues. MRI revealed C5-6 central disc herniation with cord compression without cord signal changes. In order to halt the progression of myelopathy, patient requested surgical intervention. All risks and benefits of the procedure were explained to the patient. The risks include but are not limited to infection, bleeding, injury to nerves and vessels, vertebral artery injury, spinal cord injury, paralysis, vocal cord paralysis, injury to esophagus, need for further procedures, adjacent segment degeneration, heterotopic ossification, implant loosening, implant failure, DVT, pulmonary embolism, cardiopulmonary event, etc. Procedure: The patient was identified in the preoperative suite using unique patient identifiers. Skin was marked consent was taken and all questions were answered. The patient was then brought back to the operative room and a timeout was performed. General endotracheal anesthesia was given. Intraoperative neuro monitoring leads were applied. The patient was carefully positioned supine on a regular OR table. A lateral x-ray with a C-arm was done to identify the level and to define the incision. The anterior neck was then prepped and draped in the usual fashion. A final timeout was then performed. A transverse skin incision was then taken to the left of midline 2 fingerbreadths above the clavicle. Subcutaneous tissue was then divided with Bovie. Platysma was identified and cut transversely with scissors. The fascial interval between the sternocleidomastoid and the larynx was developed. Omohyoid was identified and mobilized medially and inferiorly. Carotid sheath was laterally while the esophagus with the larynx was retracted medially to reach the prevertebral fascia. All prevertebral layers of fascia were bluntly dissected and a Herron pin was placed into one of the bodies. A lateral C-arm image was used to confirm the correct level. Once this was done longus coli muscle was elevated on both sides at and above and below C5-6 disc. Shadow line retractors were then placed with great care to protect the esophagus. A long handle knife was then used to perform annulotomy at C5-6. Disc fragments were removed with the pituitary. Herron pins were placed in C5 and C6 for disc distraction. Curettes were utilized to remove cartilage from the endplates. Discectomy was performed laterally up to the uncovertebral joints. Adequate decompression was performed, PLL was thinned out and partially resected. Foramina were decompressed without taking down the uncovertebral processes. Once the disc space was prepared, trials of various sizes were utilized. Thorough irrigation was given. Mobi-C anterior cervical disc replacement implant of size 17 x 15 mm with 6 mm height was then placed under fluoroscopic guidance. Adequate positioning was noticed on AP and lateral views. Thorough irrigation was again given. Hemostasis was achieved with FloSeal and bipolar cautery. Closure was done with 3-0 Vicryl for the platysma and subcutaneous tissue layers and 4-0 Monocryl for the skin. Steri-Strips were appl ied and dressing was done with 4 x 4 gauze and Tegaderm. A cervical collar was then applied. The patient was then woken up from anesthesia extubated and taken to PACU in stable condition. Intraoperative neuro monitoring was performed throughout this procedure. Motor evoked potentials were run periodically. All potentials remained at baseline throughout the procedure. I was present for the entire surgery and performed the surgery myself. Vice President Of Advertising Gisselle Green PA-C. My physician cafeteria assistant was a vital part of this case. They were important in appropriate retraction during the case, and prote ction of soft tissues during the procedure. Their intimate knowledge of the case and my steps aided in safe and expedient completion of the procedure as well as appropriate position of the patient during the surgery. They were also vital in assisting with closure under my direct supervision. Surgical Findings: See operative note Complications Complications: No
--- NOTE | 2025-03-27 09:32 | PCM.POST.ANE ---
Anesthesia: Postop Eval I Current Vital Signs Temperature: 96.9 F Pulse Rate: 88 Blood Pressure: 116/76 Respiratory Rate: 20 Pulse Ox: 100 Oxygen Delivery Method: Room Air Assessment Airway patent: Yes Spontaneous unlabored respirations: Yes Mental status: Awake and Calm nausea: No Vomiting: No Anesthesia Complication: No Fluid Hydration Crystalloid volume administer (ml): 1,300 Total IV fluid infused: 1,300 Progress Note Anesthesia document: Postop Eval 1 completed: Yes
--- NOTE | 2025-03-27 09:52 | POSTOPAN2_ITS ---
Anesthesia Postop Eval I Sum Postop Eval Completion status Anesthesia document: Postop Eval 1 completed: Yes Anesthesia Postop Eval I Summary Anesthesia Postop Eval I Summary: Anesthesia Postop Eval I: Assessment Summary Airway patent Yes 03/27/25 09:33 [email or web address] Spontaneous unlabored Yes 03/27/25 09:33 [email or web address] respirations Mental status Awake,Calm 03/27/25 09:33 [email or web address] nausea No 03/27/25 09:33 [email or web address] Vomiting No 03/27/25 09:33 [email or web address] Anesthesia Postop Eval I: Fluid Summary Crystalloid volume administer 1,300 03/27/25 09:33 [email or web address] (ml) Colloids volume administered ( ml) Blood Product volume administered (ml) Total IV fluid infused 1,300 03/27/25 09:33 [email or web address] Anesthesia Postop Eval I: Summary Notes Anesthesia Complication No 03/27/25 09:33 [email or web address] Anesthesia Complication Comment: Post-operative progress note Anesthesia: Postop Eval II Evaluation Mental status: Awake and Calm Pain Level: 2 nausea: No Vomiting: No Complications Anesthesia Complication: No
--- NOTE | 2025-03-27 09:52 | PCM.POSTANE2 ---
Anesthesia Postop Eval I Sum Postop Eval Completion status Anesthesia document: Postop Eval 1 completed: Yes Anesthesia Postop Eval I Summary Anesthesia Postop Eval I Summary: Anesthesia Postop Eval I: Assessment Summary Airway patent Yes 03/27/25 09:33 [email or web address] Spontaneous unlabored Yes 03/27/25 09:33 MARKETING [email or web address] respirations Mental status Awake,Calm 03/27/25 09:33 [email or web address] nausea No 03/27/25 09:33 MARKETING [email or web address] Vomiting No 03/27/25 09:33 [email or web address] Anesthesia Postop Eval I: Fluid Summary Crystalloid volume administer 1,300 03/27/25 09:33 [email or web address] (ml) Colloids volume administered ( ml) Blood Product volume administered (ml) Total IV fluid infused 1,300 03/27/25 09:33 [email or web address] Anesthesia Postop Eval I: Summary Notes Anesthesia Complication No 03/27/25 09:33 [email or web address] Anesthesia Complication Comment: Post-operative progress note Anesthesia: Postop Eval II Evaluation Mental status: Awake and Calm Pain Level: 2 nausea: No Vomiting: No Complications Anesthesia Complication: No
== END 2025-03-27 11:23 | disposition home or self-care (01) ==
LOC: SDC 05:23 → AC 05:24
PROVIDERS: PCP Family Medicine; Referring Provider Orthopaedic Surgery Orthopaedic Surgery of the Spine; Visit Provider Orthopaedic Surgery Orthopaedic Surgery of the Spine
PROC: (CPT 22856; principal; 2025-03-27 07:00)
DX: M50.022 Cervical disc disorder at C5-C6 level with myelopathy (principal); G43.909 Migraine, unspecified, not intractable, without status migrainosus; Z87.891 Personal history of nicotine dependence
CPT/HCPCS: 22856; 00600; 36415; 72040; 76000; 80048; 81025; 82962; 83036; 83735; 85025; 86703; 86706; 86708; 86803; 86850; 86900; 86901; 87081; 93005; A4648; J2405; J3475